=== PATIENT | female | born 1960 | race Caucasian/White ===

== ENCOUNTER 2019-04-16 14:24 | Emergency (ER) | payer MEDICAID, SELFPAY ==
[2019-04-16 14:26] VITALS: BP 121/85; PULSE 48; RESP 17; TEMP 36.9; O2SAT 93; O2SAT 95; BMI 26.4
--- NOTE | 2019-04-16 14:32 | RAD_ITS ---
STUDY: X-RAY CHEST REASON FOR EXAM: Female, 59 years old. Chest pain. TECHNIQUE: Single AP portable view of the chest. COMPARISON: None. FINDINGS: EKG electrodes are seen. The lungs are clear and expanded. There is no demonstrated pleural abnormality. Normal size heart. Normal mediastinum and mariangel. Normal visualized pulmonary arteries. Normal visualized aortic arch and descending thoracic aorta. There are degenerative changes of the visualized thoracic spine. Prior fusion of the lower cervical spine. There is no demonstrated abnormality of the visualized soft tissue structures of the upper abdomen. RAD/Chest 1 View (Portable) IMPRESSION: Hyperinflation. No acute abnormality is seen. Electronically Signed: August Gregory, at 14:52 EDT , Service support ,
--- NOTE | 2019-04-16 14:32 | EKG12_ITS ---
Test Reason : REPEAT EKG Blood Pressure : / mmHG Vent. Rate : 052 BPM Atrial Rate : 052 BPM P-R Int : 214 ms QRS Dur : 068 ms QT Int : 410 ms P-R-T Axes : 062 045 047 degrees QTc Int : 381 ms Sinus bradycardia with 1st degree A-V block Otherwise normal ECG Confirmed by REJI UMANZOR, RASHAAD ([id number]), editor managing newspaper CATALINO MARR ([id number]) on 04/20/2019 12:28:20 PM Referred By: SADIE Confirmed By:RASHAAD MENDOZA MD
--- NOTE | 2019-04-16 14:36 | NURSING ---
NO OLD EKGS
[2019-04-16] MEDS: Aspirin 81 MG TAB.CHEW 324 MG PO (15:27)
[2019-04-16] MEDS: LORazepam 2 MG/ML Syringe 1 MG IV (15:31)
[2019-04-16 15:37] VITALS: BP 137/75; PULSE 50; RESP 17
[2019-04-16 15:43] LABS: Absolute Lymphocyte Count 2.52 X10^3/uL (0.83-4.51); Absolute Neutrophil Count 8.2 X10^3/uL (2.0-7.7); Basophil# 0.04 X10^3/uL; Basophil% 0.3 % (0-1); Eosinophil# 0.05 X10^3/uL; Eosinophils% 0.4 % (0-5); Hematocrit 37.2 % (37-47); Hemoglobin 12.9 g/dL (12.0-15.0); Lymphocyte # 2.52 X10^3/ul (4.0); Lymphocyte % 20.9 % (19-41); Mean Corp Hgb Conc 34.7 g/dL (32-36); Mean Corpuscular Hgb 30.6 pg (27.0-32.0); Mean Corpuscular Volume 88.2 fL (81-99); Mean Platelet Vol. 9.8 fl (6.2-12.0); Monocyte# 1.22 X10^3/uL; Monocyte% 10.1 % (0-10); NRBC Flagged by Analyzer 0 % (0-5); Neutrophil # 8.18 X10^3/uL (2.7-7.7); Platelet Count 215 K/mm3 (150-450); RBC Distribution Width CV 12.4 % (11.6-14.6); RBC Distribution Width SD 39.7 fl (35.1-43.9); Red Blood Count 4.22 M/mm3 (4.2-5.4); White Blood Count 12.1 K/mm3 (4.4-11.0)
[2019-04-16 16:02] LABS: Anion Gap 5 (5-15); BUN 22 mg/dL (7-18); BUN/Creat Ratio 24.9 RATIO (10-20); Calcium,Total 9.5 mg/dL (8.5-10.1); Chloride 104 mmol/L (98-107); Creatinine, Serum 0.88 mg/dL (0.55-1.02); EST Glomerular Filtration Rate 69 mL/min (>60); Est Glom Filt Rate - Afr Amer 84 mL/min (>60); Estimated Creatinine Clearance 73.52 ml/min; Glucose 103 mg/dL (74-106); Potassium 3.7 mmol/L (3.5-5.1); Sodium Level 136 mmol/L (136-145)
--- NOTE | 2019-04-16 16:14 | ED.VISSUMM ---
- ER Visit Summary Date of Service: 04/16/19 Chief Complaint: Chest pain History of Present Illness: The patient is a 59 F who sees Britni Vale. She reports that she was at the dentist today and was very anxious. She developed chest pain that she describes as sharp approximately 2 hours ago. It has been constant since that time. She reports it was 7 out of 10 at worst and she is pain-free currently. This was worsened by nothing. It was unchanged with exertion, movement, or breathing. She relieved by Xanax. She reports that she has had multiple episodes of this in the past that if she catches them quickly and takes Xanax for pain resolves. She was at the dentist was unable to do that today. These episodes are not related to exertion. She denies any chest pain or change in dyspnea exertion in the past month. She reports that she had a stress test approximately 2 years ago. Physical Examination: Vitals: Stable. Afebrile. General: Well-nourished and well-developed. Head: Normocephalic atraumatic. Neck: Supple, no lymphadenopathy. No JVD. Nontender. Cardiovascular: Regular rate and rhythm. No murmurs. Respiratory: No respiratory distress. Clear to auscultation bilaterally. Abdominal: Soft, nontender, nondistended, normal bowel sounds. No guarding, rebound, or peritoneal signs. Back: Nontender. Extremities: Nontender, no edema. Skin: Normal color, no rash. Neurologic: Alert and oriented ?3. Cranial nerves II through XII are intact. Normal strength and sensation. Psych: Normal affect. Test Results: EKG is sinus bradycardia with first-degree AV block rate of 46. There is no EKG for comparison. Repeat EKG is unchanged. Initial troponin is negative. Repeat troponin is pending. Chem-7 shows BUN of 22. CBC shows white count of 12.1. Chest x-ray shows no acute disease. Emergency Department Course and Treatment: Patient reports that her chest pain had resolved prior to arrival in the emergency department. She was given a dose of Ativan IV for her anxiety. She was given a dose of morphine IV for her dental pain. Her dentist had prescribed her amoxicillin. She was given a dose of Unasyn IV as an initial dose of this year. Treatment Plan: At this time I do not think that this chest pain is ischemic. She will be discharged with instructions to follow-up with her primary care physician within 3 to 5 days for further evaluation of her chest pain. She is instructed to follow-up with her dentist tomorrow as previously scheduled. Return to the emergency department for any worsening symptoms. Disposition: To home in improved and stable condition. Impression: 1. Atypical chest pain. 2. First-degree AV block. 3. IMER score of 1. This note was generated with [employer] dictation software. It may contain incorrect words, spelling, and punctuation that were not noted in review of the chart prior to signing ED Disposition - Plan for ED Patient: Instructions: CHEST PAIN, Uncertain Cause, Dental Pain Prescriptions: Morphine Sulfate 15 mg PO Q4H PRN PRN 3 Days #12 tab PRN Reason: Pain Prescription Printed Referrals: Tereza Vale PA-C [Primary Care Provider] - As soon as possible
--- NOTE | 2019-04-16 16:31 | EKG12_ITS ---
Test Reason : CP Blood Pressure : / mmHG Vent. Rate : 046 BPM Atrial Rate : 046 BPM P-R Int : 212 ms QRS Dur : 072 ms QT Int : 410 ms P-R-T Axes : 056 035 042 degrees QTc Int : 358 ms Sinus bradycardia with 1st degree A-V block Otherwise normal ECG Confirmed by REJI UMANZOR, RASHAAD ([id number]), production editor CATALINO MARR ([id number]) on 04/20/2019 12:55:33 PM Referred By: MR Confirmed By:RASHAAD MENDOZA MD
[2019-04-16] MEDS: Morphine 4 MG/ML Syringe IV ×2 (16:34→18:54)
[2019-04-16 16:37] VITALS: BP 114/59; PULSE 52; RESP 17; O2SAT 94
[2019-04-16 18:26] VITALS: BP 124/64; PULSE 56; RESP 17; O2SAT 97
[2019-04-16 19:12] VITALS: BP 134/66; PULSE 49; RESP 11; O2SAT 93
[2019-04-16 19:44] VITALS: BP 159/90; PULSE 52; RESP 13; O2SAT 97
== END 2019-04-16 19:44 | disposition home or self-care (01) ==
LOC: ED 14:53
PROVIDERS: Emergency Provider Emergency Medicine; Family Provider Family Medicine; PCP Family Medicine
DX: R07.89 Other chest pain (principal); I44.0 Atrioventricular block, first degree; R11.2 Nausea with vomiting, unspecified; K21.9 Gastro-esophageal reflux disease without esophagitis; F41.9 Anxiety disorder, unspecified; E78.00 Pure hypercholesterolemia, unspecified; Z72.0 Tobacco use; Z79.899 Other long term (current) drug therapy
CPT/HCPCS: 71045; 80048; 84484; 85025; 93005; 96361; 96365; 96366; 96374; 96375; 96376; 99283; 99285; J7030; A4216; J0295

== ENCOUNTER 2019-04-16 20:34 | Emergency (ER) | payer MEDICAID, SELFPAY ==
[2019-04-16 14:26] VITALS: BMI 26.4
[2019-04-16 20:34] VITALS: BP 144/88; PULSE 58; RESP 14; TEMP 36.1; O2SAT 95; BMI 26.4
--- NOTE | 2019-04-16 22:05 | ED.VISSUMM ---
- ER Visit Summary Date of Service: 04/16/19 Chief Complaint: Nausea and vomiting History of Present Illness: The patient is a 59 F who presents with nausea and vomiting that has been intermittent over the past 4 days. Patient had a partial root canal done on her right lower second molar 4 days ago. Patient was therefore a follow-up appointment today and started having chest pain. Patient was then seen in the emergency department for chest pain. Patient had a negative work-up at that time. Patient was discharged. Patient had 2 episodes of vomiting after she was discharged. Patient return to the emergency department because of the nausea and vomiting. Patient also complains of a right-sided headache. 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 Patient denies any visual changes. Patient denies any photophobia. Patient denies any neck pain. Physical Examination: Vital signs are stable. Patient is afebrile. Patient is in no acute distress. Oral mucosa is pink and moist. There is tenderness over the right lower second molar. There is no gingival edema. There is no fluctuance. There is no evidence of any abscess. There is no trismus noted. Neck is supple. Trachea is midline. There is no JVD noted. Heart was regular rate and rhythm. Lungs are clear and equal bilateral. Abdomen is soft. Bowel sounds are normal. There is no tenderness. There is no guarding noted. Skin is warm dry. Cranial nerves II through XII are intact. There are no focal motor or sensory deficits noted. The remaining physical exam is within normal limits. Emergency Department Course and Treatment: Patient was given IV fluids, Reglan, and Benadryl. She is feeling better on reevaluation. Patient was sleeping. Patient had no further episodes of nausea and vomiting. Patient was given a prescription for Zofran ODT's. Patient was instructed to follow-up with her dentist tomorrow as scheduled. Patient understood and was agreeable with the plan. All questions were answered. Disposition: Discharge home Impression: Nausea and vomiting This note was generated with [employer] dictation software. It may contain incorrect words, spelling, and punctuation that were not noted in review of the chart prior to signing ED Disposition - Plan for ED Patient: Disposition: Home or Assisted Living Diagnosis: Nausea and vomiting Instructions: VOMITING (5y-Adult) Prescriptions: Ondansetron [Zofran Odt] 4 mg PO Q8H PRN PRN #10 tab PRN Reason: Nausea Prescription Printed Referrals: Tereza Vale PA-C [Primary Care Provider] - 3-5 Days
[2019-04-16] MEDS: 0.9% Normal Saline 1,000 ML 999 ML IV (22:14)
[2019-04-16] MEDS: DiphenhydrAMINE 50 MG/ML Syringe 25 MG IV (22:14)
[2019-04-16] MEDS: Metoclopramide 10 MG/2 ML Vial IV (22:14)
[2019-04-16 23:01] VITALS: RESP 18; O2SAT 99
[2019-04-16 23:25] VITALS: BP 113/67; PULSE 71; RESP 15; O2SAT 96
== END 2019-04-16 23:34 | disposition home or self-care (01) ==
PROVIDERS: Emergency Provider Emergency Medicine; Family Provider Family Medicine; PCP Family Medicine
DX: R11.2 Nausea with vomiting, unspecified (principal)
CPT/HCPCS: 96361; 96374; 96375; J7030; A4216